=== PATIENT | female | born 1930 | race Caucasian/White ===

== ENCOUNTER 2019-08-13 23:41 | Emergency (ER) | payer MEDICARE, OTHER ==
[~2019-08-13] VITALS: Ht 167.6 cm; Wt 56.7 kg
[~2019-08-13 23:41] MED LIST: ASPI-1169 PO; CLOP75TA15 PO; ENAL2.5T PO; METO25TA3 PO
--- NOTE | 2019-08-13 23:58 | NUR ---
PT PRESENTED TO THE ER WITH A C/O LEFT FOREHEAD HEMATOMA. PT HAS AN ICE PACK APPLIED TO THE AREA.
--- NOTE | 2019-08-14 00:01 | NUR ---
PT LEFT VIA GURNEY TO CT.
--- NOTE | 2019-08-14 00:11 | NUR ---
PT RETURNED FROM CT.
--- NOTE | 2019-08-14 00:43 | NUR ---
PT APPEARS TO BE RESTING COMFORTABLY WITH NO C/O PAIN. PT IS ON THE MONITOR AND CONTINUOUS PULSE OX. PT REC'D 2 WARM BLANKETS. WILL CONTINUE TO MONITOR THE PT.
--- NOTE | 2019-08-14 01:33 | NUR ---
Patient discharged to home in stable condition. Written and verbal after care instructions given. Patient verbalizes understanding of instruction AND RX. PT'S SON IS DRIVING PT HOME. VSS. NAD NOTED. PT AMBULATED OUT WITH A STEADY GAIT.
[2019-08-14 01:37] VITALS: BP 154/77
== END 2019-08-14 01:37 | disposition home or self-care (01) ==
LOC: ER 23:44
DX: S00.12XA Contusion of left eyelid and periocular area, initial encounter (principal); I10 Essential (primary) hypertension; Z79.899 Other long term (current) drug therapy; Z79.82 Long term (current) use of aspirin; W18.39XA Other fall on same level, initial encounter; Y93.89 Activity, other specified; Y92.89 Other specified places as the place of occurrence of the external cause; Y99.8 Other external cause status
CPT/HCPCS: 70450-TC; 72125-TC